=== PATIENT | female | born 1980 | race Caucasian/White ===

== ENCOUNTER → 2023-06-29 | Outpatient (CLI) | payer BC ==
--- NOTE | 2023-06-29 14:12 | Diagnostic Imaging Report ---
INDICATION: Chest wall pain following injury. TECHNIQUE: A frontal chest and oblique left rib series were performed. FINDINGS: The lungs are clear. No infiltrate, effusion, pneumothorax, or contusion. The hilar and mediastinal contours are normal. The diaphragms are smooth and intact. The left rib series shows no rib fracture deformity, bony destruction, periosteal reaction, or suspicious cortical lucency. There is no pleural hematoma evident. IMPRESSION: Normal frontal chest and left rib series. Dictated by: Dictated on workstation # [id number]
== END ==
LOC: RAD 13:38
PROVIDERS: ATTEND Nurse Practitioner Family
DX: S23.41XA Sprain of ribs, initial encounter (principal); F32.A Depression, unspecified; E78.5 Hyperlipidemia, unspecified; G47.00 Insomnia, unspecified; E66.9 Obesity, unspecified
CPT/HCPCS: 71101